=== PATIENT | male | born 1975 | race Caucasian/White ===

== ENCOUNTER 2020-12-15 21:17 | Emergency (ER) | payer OTHER, SELFPAY ==
[2020-12-15 21:20] VITALS: BP 136/83; PULSE 83; RESP 18; TEMP 36.8; O2SAT 98; BMI 29.9
--- NOTE | 2020-12-15 21:38 | ED.SKABFB ---
HPI - Skin/Abscess/Foreign Bdy General Chief complaint: Skin/Abscess/Foreign Body Stated complaint: FOOD WONT GO DOWN Time Seen by Provider: 12/15/20 21:20 Source: patient Mode of arrival: Ambulatory Limitations: no limitations History of Present Illness HPI narrative: 45-year-old male daily smoker with noncontributory medical history presents with his in the chief complaint of the sensation of a foreign body in esophagus since eating some chicken earlier today. He states he has had this happen on occurrence before but is always been able to clear it home. Since eating the chicken has stated earlier he has been unable to eat or drink anything else and has constant sensation of needing to vomit or gag. He has thrown up a few times and had some mild blood streaks towards the end. He denies any fever chills. Denies any chest pain or shortness of breath. He is not dizzy nor weak or lightheaded. He has never had the need for medical intervention for prior esophageal foreign bodies and has never had endoscopy or dilation. MD complaint: other Related Data Allergies Allergy/AdvReac Type Severity Reaction Status Date / Time No Known Drug Allergies Allergy Verified 12/15/20 21:24 Review of Systems Constitutional Constitutional: Denies chills, Denies fatigue, Denies fever(s), Denies frequent falls, Denies lethargy and Denies weakness Eyes Eyes: Denies change in vision, Denies eye discharge, Denies irritation and Denies loss of vision ENT Ears, Nose, Mouth, and Throat: Denies change in voice, Denies dizziness, Denies neck pain, Denies sore throat and Denies throat swelling Comments: Foreign body sensation Cardiovascular Cardiovascular: Denies chest pain, Denies irregular heart rhythm, Denies lightheadedness, Denies palpitations, Denies dyspnea, Denies dyspnea on exertion and Denies orthopnea Respiratory Respiratory: Denies cough, Denies dyspnea, Denies dyspnea on exertion and Denies wheezing Gastrointestinal Gastrointestinal: Denies abdominal pain, Denies change in bowel habits, Denies diarrhea, Reports nausea and Reports vomiting Musculoskeletal Musculoskeletal: Denies neck pain and Denies numbness Integumentary/Breasts Skin/Breast: Denies pruritus, Denies erythema, Denies rash and Denies wounds Neurologic Neurologic: Denies behavioral changes, Denies confusion, Denies dizziness, Denies frequent falls, Denies loss of vision, Denies numbness and Denies weakness Psychiatric Psychiatric: Denies anxiety, Denies behavioral changes, Denies confusion, Denies depression, Denies homicidal ideation and Denies suicidal ideation Endocrine Endocrine: Denies fatigue, Denies flushing and Denies palpitations Hematologic/Lymphatic Hematologic/Lymphatic: Denies easy bruising Allergic/Immunologic Allergic/Immunologic: Denies urticaria, Denies throat swelling and Denies wheezing Patient History Social History Smoking Status: Current every day smoker Smoking Status: Current every day smoker alcohol intake frequency: 0-2 drinks per day Substance Use Type: does not use Exam Narrative Exam Narrative: GEN: AOx3 and in mild distress, obviously uncomfortable, holding an emesis bag EYES: Pupils are equal, round, and reactive to light and accommodation. Extraoccular muscles are intact bilaterally. There is no subconjunctival hemorrhage or exudate. CHEST: Lungs are clear to auscultation bilaterally and free of wheezes, rales, or rhonchi. Heart rate is regular rhythm, there are no murmurs, clicks, rubs, or gallops. There is no chest wall tenderness. ABD: Abdomen is soft and nontender. There is no guarding or rebound. Bowel sounds are normal in all 4 quadrants. There is no mass or organomegaly. EXT: Full painless ROM of all extremities with no loss of sensation or strength. SKIN: Warm, pink, and dry. No erythema or rash Initial Vital Signs Initial Vital Signs: Vital Signs Temperature 98.3 F 12/15/20 21:20 Pulse Rate 83 12/15/20 21:20 Respiratory Rate 18 12/15/20 21:20 Blood Pressure 136/83 12/15/20 21:20 Pulse Oximetry 98 12/15/20 21:20 Course Orders Ordered: Discontinued Medications Glucagon (Glucagon,Human Recombinant 1 Mg/Ml Vial) 1 mg IV NOW ONE Stop: 12/15/20 21:41 Last Admin: 12/15/20 22:28 Dose: 1 mg Documented by: ELVIA Reevaluation(s) Reevaluation #1: Patient able to drink without difficulty after glucagon and lukewarm soda. He states he feels that he is cleared what ever was in his throat and now is having no trouble. He denies any pain, shortness of breath or difficulty swallowing. Vital Signs Vital signs: Vital Signs - 8 hr 12/15/20 21:20 12/15/20 22:47 Temperature 98.3 F Pulse Rate 83 72 Respiratory Rate 18 18 Blood Pressure 136/83 142/73 H Pulse Oximetry 98 96 Discharge Plan Departure Patient Disposition: Home Clinical Impression: Foreign body in esophagus Qualifiers: Encounter type: initial encounter Qualified Code(s): T18.108A - Unspecified foreign body in esophagus causing other injury, initial encounter Instructions: DI for Foreign Body, Swallowed-Adult Activity Restrictions/Additional Instructions: *You have been diagnosed with [cleared esophageal foreign body] *What to do: * continue to take medications as directed *Follow up with your primary care provider in 2-3 days, call for an appointment. Let them know you were seen in the Emergency Department and that we ask that you be seen in follow up *Return to ER if you should have any new, worsening or concerning symptoms Referrals: Elisa Godwin MD [Physician] - Robe Palmer MD [Physician] -
--- NOTE | 2020-12-15 22:16 | PC.NURSE ---
patient has a food bolus stuck in his throat
[2020-12-15] MEDS: GLUCAGON,HUMAN RECOMBINANT 1 MG/ML VIAL IV (22:28)
[2020-12-15 22:47] VITALS: BP 142/73; PULSE 72; RESP 18; O2SAT 96
== END 2020-12-15 22:48 | disposition home or self-care (01) ==
PROVIDERS: Emergency Provider Emergency Medicine
DX: T18.108A Unspecified foreign body in esophagus causing other injury, initial encounter (principal)
CPT/HCPCS: 96374; 99283; 99284; J1610

== ENCOUNTER → 2022-07-29 12:59 | Outpatient (CLI) | payer OTHER, SELFPAY | PROVIDERS: Referring Provider Orthopaedic Surgery; Visit Provider Orthopaedic Surgery | DX: M75.101 Unspecified rotator cuff tear or rupture of right shoulder, not specified as traumatic (principal); Z53.20 Procedure and treatment not carried out because of patient's decision for unspecified reasons ==

== ENCOUNTER → 2023-04-20 07:13 | Outpatient (CLI) | payer OTHER, SELFPAY | PROVIDERS: Visit Provider Nurse Practitioner Family | DX: J02.9 Acute pharyngitis, unspecified (principal) | CPT/HCPCS: 87070; 87077; 87147 ==